=== PATIENT | male | born 1960 | race Caucasian/White ===

== ENCOUNTER 2016-06-01 08:16 | Emergency (ER) | payer OTHER ==
[~2016-06-01 08:16] MED LIST: Sodium Chloride 0.9% 1,000 ML BAG ONE
[2016-06-01] MEDS ORDERED: Ondansetron HCl/PF 4 MG/2 ML Vial ONE (08:44)
[2016-06-01] MEDS ORDERED: Fentanyl 100 MCG/2 ML VIAL ONE ×2 (08:44→10:36)
[2016-06-01] MEDS ORDERED: Ketorolac Tromethamine 30 MG/ML VIAL ONE (08:44)
[2016-06-01 08:54] LABS: #Basophils 0.1 thou/uL (0.0-0.2); #Eosinphils 0.1 thou/uL (0.0-0.7); #Lymphocytes 1.2 thou/uL (1.20-3.40); #Monocytes 0.7 thou/uL (0.11-0.59); #Neutrophils 10.7 thou/uL (1.40-6.50); %Basophils 0.7 % (0.0-1.0); %Eosinophils 0.9 % (0.0-10.0); %Lymphocytes 9.2 % (21.0-51.0); %Monocytes 5.2 % (0.0-10.0); %Neutrophils 84.1 % (42.0-75.0); Mean Corpuscular HGB CONC 33.8 g/dL (32.0-36.0); Mean Corpuscular Volume 94.8 fl (80.0-94.0); Mean Platelet Volume 8.4 fL (7.4-10.4); Platelet Count 285 thou/uL (130-400); RBC Distribution Width 11.5 % (11.5-14.5); Red Blood Cell (RBC) Count 4.69 mill/uL (4.70-6.10); White Blood Cell (WBC) Count 12.7 thou/uL (4.8-10.8)
[2016-06-01 09:09] LABS: ALT (SGPT) 30 U/L (0-55); AST (SGOT) 22 U/L (5-34); Albumin 4.2 g/dL (3.5-5.0); Alkaline Phosphatase 94 U/L (40-150); Anion Gap 18 mmol/L (10-20); BUN (Urea Nitrogen) 20 mg/dL (8.4-25.7); Bilirubin, Total 0.9 mg/dL (0.2-1.2); Calc. Creatinine Clearance 0 mL/min (70-130); Calcium 9.7 mg/dL (7.8-10.44); Carbon Dioxide 20 mmol/L (22-29); Chloride 105 mmol/L (98-107); Estimated GFR-MDRD 63; Globulin 3.1 g/dL (2.4-3.5); Glucose 133 mg/dL (70-105); Potassium 4.4 mmol/L (3.5-5.1); Protein, Total 7.3 g/dL (6.0-8.3); Sodium 139 mmol/L (136-145)
--- NOTE | 2016-06-01 09:58 | CT ---
CT ABDOMEN AND PELVIS WITHOUT CONTRAST: Technique: Multiple axial tomograms were obtained through the abdomen and pelvis without IV enhance ment. Oral contrast was not given. History: Left abdominal pain and left flank pain. FINDINGS: Lung bases are clear. The liver, spleen, and pancreas appear unremarkable for an unenhanced study. Adrenal glands appear normal. There is mild left hydronephrosis. There is ====== of the left ureter with inflammatory stranding s urrounding the left ureter and there is obstructing calculus in the distal left ureter measuring in the 4 mm range. The bladder is minimally distended and appears abnormally dense. This may represen t blood within the bladder. This should be evaluated by urology. There is a tiny hyperdense lesion in the left renal cortex measuring 0.7 cm which should be further evaluated with elective pre and post contrast CT. There are numerous surgical clips in the mesentery, the mid abdomen to the right of midline suggesti ng prior bowel resection. Small bowel loops show nonspecific distention. There is stool in the rig ht colon. The transverse colon and left colon is decompressed and cannot be adequately evaluated. Aorta is normal caliber. Nonspecific mesenteric and paraaortic lymph nodes. IMPRESSION: 1. 4 mm calculus in the distal left ureter producing moderate obstructive change. 2. Abnormally dense mildly distended bladder. This may be due to blood within the bladder although recommend cystoscopy to further evaluate. 3. Small hyperdense lesion in the left renal cortex measuring 0.7 cm should be further evaluated. 4. Evidence of prior small bowel resection with nonspecific distention of small bowel loops. POS: [facility]
[2016-06-01 11:15] LABS: Bilirubin Negative (Negative); Blood, Urine Large (Negative); Glucose, Urine (Dipstick) Negative (Negative); Leukocyte Negative (Negative); Nitrite Negative (Negative); Protein, Urine (Dipstick) 30 mg/dL (Neg-Trace); Urobilinogen 0.2 mg/dL (0.2-1.0); pH, Urine 5.5 (5.0-9.0)
[2016-06-01 11:16] LABS: Specific Gravity, Urine 1.026 (1.002-1.036)
[2016-06-01 11:18] LABS: Clarity Hazy (Clear); RBC/HPF GREATER THAN 50-TNTC HPF (0-3)
[2016-06-01 11:19] LABS: Bacteria/HPF Rare-Few HPF (None Seen)
--- NOTE | 2016-06-01 12:14 | ERRECORD ---
[facility] EMERGENCY RECORD HPI FLANK PAIN (10:02 BPIC) CHIEF COMPLAINT: Patient presents for evaluation of flank pain, on the left. HISTORIAN: History provided by patient, Flank pain that began within the past few hours. sharp pain. LOCATION MALE: Symptoms are localized, Radiation, back to front. QUALITY: Pain is sharp in nature. SEVERITY: Maximum severity of symptoms moderate, Currently symptoms are moderate. TIME COURSE: Sudden onset of symptoms, Symptoms are improving, are intermittent. ASSOCIATED WITH MALE: Associated with nausea. EXACERBATED BY: Patient's condition exacerbated by nothing. RELIEVED BY: Patient's condition relieved by nothing. ROS (10:02 BPIC) CONSTITUTIONAL: Negative constitutional review of systems, Historian denies chills, denies fever. EYES: Negative eye review of systems. ENT: Negative ears, nose, throat review of systems. CARDIOVASCULAR: Negative cardiovascular review of systems, Historian denies chest pain, denies palpitations. RESPIRATORY: Negative respiratory review of systems, Historian denies cough, denies shortness of breath. GI: Historian denies abdominal pain, denies constipation, denies diarrhea, reports nausea. MUSCULOSKELETAL: Negative musculoskeletal review of systems. SKIN: Negative skin review of systems. NEUROLOGIC: Negative neurologic review of systems. ENDOCRINE: Negative endocrine review of systems. HEMO/LYMPHATIC: Normal hematologic/lymphatic system review. PSYCHIATRIC: Negative psychiatric review of systems. NOTES: All other ROS is negative except as listed in HPI. PAST MEDICAL HISTORY MEDICAL HISTORY: Flu vaccine not up to date, Tetanus immunization up to date, Date of immunization: < 10YEARS, Past medical history includes gastrointestinal disease, inflammatory bowel disease: Crohn's. (09:03 SCHI) MALE SURGICAL HISTORY: FOUR BOWEL RESECTIONS 1992, 1991, 1985, 1977,, Surgical history of hernia repair, Date of surgery 1992. (09:03 SCHI) PSYCHIATRIC HISTORY: No previous psychiatric history, no previous inpatient psychiatric admissions, no previous emergency department psychiatric evaluations. (09:03 SCHI) NOTES: I have reviewed and agree with the PMH/PSxH/FamHx/SocHx obtained by the nurse. (10:02 BPIC) KNOWN ALLERGIES codeine sulfate: - UNUSUAL DREAMS &a-1R&a+25V*p+0X*q4773H*c202B*c15G*c2P*p-0X&a-25V&a+1R Name: Jeff Ayala : 1960 M55 MedRec: [id number] AcctNum: [id number] Prepared: MonJun 01, 2016 13:40 by Interface Page 1 of 4 pMD [facility] EMERGENCY RECORD morphine (bulk): - UNUSUAL DREAMS CURRENT MEDICATIONS No recorded medications VITAL SIGNS VITAL SIGNS: BP: 142/84, Pulse: 89, Resp: 22, Temp: 97 (Tympanic), Pain: 8 (Constant), O2 sat: 96 on Room Air, Time: 06/01/2016 08:32. (08:32 SCHI) BP: 140/76, Pulse: 72, Resp: 20, Pain: 5, O2 sat: 99 on Room Air, Time: 06/01/2016 10:02. (10:02 SCHI) Pain: 2, Time: 06/01/2016 09:30. (09:30 SCHI) Pain: 2, Time: 06/01/2016 09:30. (09:30 SCHI) BP: 136/86, Pulse: 71, Resp: 18, Temp: 98.1 (Tympanic), Pain: 2, O2 sat: 99 on Room Air, Time: 06/01/2016 11:40. (11:40 SCHI) PHYSICAL EXAM (10:02 BPIC) CONSTITUTIONAL: Vital signs reviewed, Patient appears non toxic, Patient alert and oriented to person, place and time, Pt cannot find a position of comfort. HEAD: Head exam included findings of head atraumatic, normocephalic. EYES: Eye exam included findings of eyelids normal to inspection, Pupils equally round and reactive to light, Extraocular muscles intact. ENT: ENT exam normal, Nose exam normal, no nasal deformity, no bleeding from nares, Pharynx exam normal, Mouth exam normal, mucous membranes moist. NECK: Neck exam included findings of normal range of motion, Trachea midline. RESPIRATORY CHEST: Respiratory and chest exam normal, Breath sounds clear, No wheezing, No rales, Chest exam included findings of chest movement symmetrical, Chest expansion equal. CARDIOVASCULAR: Cardiovascular assessment normal, Cardiovascular exam included findings of heart rate regular rate and rhythm, Heart sounds normal. ABDOMEN FEMALE: Abdominal exam included findings of abdomen nontender, Bowel sounds normal, no mass, no pulsatile masses, no peritoneal signs. BACK: Back exam included findings of normal inspection, range of motion normal, no costovertebral angle tenderness. UPPER EXTREMITY: Upper extremity exam included findings of inspection normal, Range of motion normal. LOWER EXTREMITY: Lower extremity exam included findings of inspection normal, Range of motion normal. NEURO: Neuro exam findings include patient oriented to person, place and time, Speech normal, no focal motor deficits, no focal sensory deficits. SKIN: Skin exam included findings of skin warm, dry, and normal in color. &a-1R&a+25V*p+0X*[id number]*c202B*c15G*c2P*p-0X&a-25V&a+1R Name: Jeff Ayala : 1960 M55 MedRec: [id number] AcctNum: [id number] Prepared: MonJun 01, 2016 13:40 by Interface Page 2 of 4 pMD [facility] EMERGENCY RECORD LYMPHATIC: Lymphatic exam normal. PSYCHIATRIC: Psychiatric exam included findings of patient oriented to person place and time, Normal affect. RADIOLOGYINTERPRETATION (11:35 BPIC) ABDOMEN: Abdomen/pelvis CT scan, without contrast shows, ureteral stone, hydronephrosis to the left kidney, Other findings: left kidney lesion. MEDICATION ADMINISTRATION SUMMARY Drug Name: fentaNYL (PF) injection, Dose Ordered: 50 mcg, Route: IV Push, Status: Given, Time: 10:42 06/01/2016, Drug Name: *sodium chloride 0.9 % intravenous, Dose Ordered: 1 L, Route: IV Fluid Infusion, Status: Given, Time: 10:42 06/01/2016, Drug Name: fentaNYL (PF) injection, Dose Ordered: 50 mcg, Route: IV Push, Status: Given, Time: 10:02 06/01/2016, Drug Name: fentaNYL (PF) injection, Dose Ordered: 50 mcg, Route: IV Push, Status: Given, Time: 08:56 06/01/2016, Drug Name: ketorolac injection, Dose Ordered: 30 mg, Route: IV Push, Status: Given, Time: 08:56 06/01/2016, Drug Name: Zofran intravenous, Dose Ordered: 8 mg, Route: IV Push, Status: Given, Time: 08:56 06/01/2016, Drug Name: *sodium chloride 0.9 % intravenous, Dose Ordered: 1 L, Route: IV Fluid Infusion, Status: Given, Time: 08:53 06/01/2016, *Additional information available in notes, Detailed record available in Medication Service section. DOCTOR NOTES (10:02 BPIC) TEXT: Pt c/o flank pain. DDX considered includes kidney stones, appendicitis, cholecystitis, pancreatitis, small bowel obstruction, diverticulitis, cystitis, volvulus, crohn's/UC, ischemic bowel, AAA/dissection, adhesions, testicular torsion. DATA REVIEWED: Lab data reviewed, Xray data reviewed, Discussed with family. PROBLEM LIST No recorded problems DIAGNOSIS (11:34 BPIC) FINAL: PRIMARY: Kidney stone, ADDITIONAL: hematuria. PRESCRIPTION (11:32 BPIC) Flomax: CAPSULE, EXT RELEASE 24 HR : 0.4 mg : ORAL : Quantity: 0.4 Unit: mg Route: ORAL Schedule: once a day Dispense: 30 Unit: tab(s) May substitute. Refills: No Refills . NOTES: No Refills. &a-1R&a+25V*p+0X*[id number]*c202B*c15G*c2P*p-0X&a-25V&a+1R Name: Jeff Ayala : 1960 5 MedRec: [id number] AcctNum: [id number] Prepared: MonJun 01, 2016 13:40 by Interface Page 3 of 4 pMD [facility] EMERGENCY RECORD DISPOSITION PATIENT: Disposition Type: Discharge, Disposition: *Discharge Home, Condition: Good. (11:34 BPIC) Patient left the department. (12:08 [facility] Gen[facility]: BPIC=MD Guru, Scar CALLES=GREGORIO Gross, Fernandainda &a-1R&a+25V*p+0X*m1918F*c202B*c15G*c2P*p-0X&a-25V&a+1R Name: Jeff Ayala : 1960 M55 MedRec: [id number] AcctNum: [id number] Prepared: MonJun 01, 2016 13:40 by Interface Page [address] [facility] [place]
--- NOTE | 2016-06-01 12:18 | PICIS ---
[facility] EMERGENCY RECORD TRIAGE (08:35 SCHI) TRIAGE NOTES: LEFT FLANK PAIN. (08:35 SCHI) PATIENT: NAME: Jeff Ayala, AGE: 55, GENDER: male, : Mon1960, TIME OF GREET: MonJun 01, 2016 08:17, PREFERRED LANGUAGE: Greenlandic, ETHNICITY: Not or , ECODE BILLING MAP: [facility], SSN: [id number], Zip Code: [address], KG WEIGHT: 88.00, PHONE: , , , PERSON ID: [id number], PCP: HOMERO. (08:35 SCHI) COMPLAINT: LOWER BACK PAIN,VOMITING. (08:35 SCHI) ADMISSION: URGENCY: 3 Urgent, ADMISSION SOURCE: Home, TRANSPORT: Walk-in, BED: ED -05. (08:35 SCHI) ASSESSMENT: Assessment: ALERT AND ORIENTED X 4, SKIN WARM AND DRY RESP EVEN AND UNLABORED,, Symptoms began 5AM. (09:03 SCHI) PAIN: Patient complains of pain described as, stabbing, on a scale 0-10 patient rates pain as 8, Location LEFT FLANK, LEFT GROIN, Pain is constant. (09:03 SCHI) TRIAGE SCREENING: Patient denies suicidal ideation, Patient denies presence of domestic violence. (09:03 SCHI) PROVIDERS: TRIAGE NURSE: Katina Gross RN. (08:35 SCHI) VITAL SIGNS: BP 142/84, Pulse 89, Resp 22, Temp 97, (Tympanic), Pain 8, (Constant), O2 Sat 96, on Room Air, Time 06/01/2016 08:32. (08:32 SCHI) PREVIOUS VISIT ALLERGIES: codeine sulfate, morphine (bulk). (08:35 SCHI) codeine sulfate, morphine (bulk). (09:03 SCHI) KNOWN ALLERGIES codeine sulfate: - UNUSUAL DREAMS morphine (bulk): - UNUSUAL DREAMS CURRENT MEDICATIONS No recorded medications VITAL SIGNS VITAL SIGNS: BP: 142/84, Pulse: 89, Resp: 22, Temp: 97 (Tympanic), Pain: 8 (Constant), O2 sat: 96 on Room Air, Time: 06/01/2016 08:32. (08:32 SCHI) BP: 140/76, Pulse: 72, Resp: 20, Pain: 5, O2 sat: 99 on Room Air, Time: 06/01/2016 10:02. (10:02 SCHI) Pain: 2, Time: 06/01/2016 09:30. (09:30 SCHI) Pain: 2, Time: 06/01/2016 09:30. (09:30 SCHI) BP: 136/86, Pulse: 71, Resp: 18, Temp: 98.1 (Tympanic), Pain: 2, O2 sat: 99 on Room Air, Time: 06/01/2016 11:40. (11:40 SCHI) NURSING ASSESSMENT: ABDOMEN (09:03 SCHI) CONSTITUTIONAL: Patient arrives ambulatory, Gait steady, History obtained from patient, Patient appears, in distress due to pain, Patient cooperative, Patient alert, Oriented to person, &a-1R&a+25V*p+0X*[id number]*c202B*c15G*c2P*p-0X&a-25V&a+1R Name: Jeff Ayala : 1960 M55 MedRec: [id number] AcctNum: [id number] Prepared: MonJun 01, 2016 13:46 by Interface Page 1 of 10 pMD [facility] EMERGENCY RECORD place and time, Skin abnormal, Skin temperature is cold, Skin, profusely diaphoretic, Skin, pale in color, Mucous membranes pink, Mucous membranes moist, Patient is well-groomed, Patient complains of LEFT FLANK PAIN SINCE 5 AM AND WORSE AT 7AM. PAIN: aching pain, miserable pain, stabbing pain, to the left flank, Onset of pain 5AM, constant, on a scale 0-10 patient rates pain as 8. ABDOMEN: Abdomen assessment findings include abdomen symmetrical, Abdomen soft, tender, to the left flank, Associated with nausea, Associated with vomiting, currently, Associated with diarrhea. GENITOURINARY MALE: Associated with urinary complaints described as, difficulty urinating. NOTES: Emotional support needed and given, Patient tolerated procedure well. SAFETY: Side rails up, Cart/Stretcher in lowest position, Family at bedside, Call light within reach, Hospital ID band on. NURSING PROCEDURE: DISCHARGE NOTE (11:45 SCHI) DISCHARGE: Patient discharged to home, ambulating without assistance, family driving, accompanied by other family member, Summary of Care printed/ provided, Patient requested and was provided an electronic copy of Discharge Instructions, Transition record given to patient, Discharge instructions given to patient, Simple or moderate discharge teaching performed, Prescriptions given and instructions on side effects given, Medication reconciliation form given, Above person(s) verbalized understanding of discharge instructions and follow-up care, Patient treated and evaluated by physician. BELONGINGS: Belongings and valuables with patient at time of discharge include:, Belongings remain with patient, Valuables remain with patient. SAFETY: Side rails up, Cart/Stretcher in lowest position, Family at bedside, Hospital ID band on. NURSING PROCEDURE: IV PATIENT IDENITIFIER: Patient actively involved in identification process, Patient's identity verified by patient stating name, Patient's identity verified by patient stating date, Patient's identity verified by hospital ID bracelet. (08:42 SCHI) IV SITE 1: IV therapy indicated for hydration, IV therapy indicated for medication administration, IV established, to the left antecubital, using a 20 gauge catheter, in one attempt, IV site prepped with chloraprep, Saline lock established, Flushed with normal saline (mls): 10, Labs drawn at time of placement, labeled in the presence of the patient and sent to lab. (08:42 SCHI) FOLLOW-UP SITE 1: IV discontinued, due to patient being discharged, catheter intact. (11:45 SCHI) &a-1R&a+25V*p+0X*c3785C*c202B*c15G*c2P*p-0X&a-25V&a+1R Name: Jeff Ayala : 1960 M55 MedRec: [id number] AcctNum: [id number] Prepared: MonJun 01, 2016 13:46 by Interface Page 2 of 10 pMD [facility] EMERGENCY RECORD NURSING PROCEDURE: TRANSPORT TO TESTS TRANSPORT TO TESTS: Transport indicated to facilitate diagnosis, Patient transported to CT scan. (08:59 SCHI) FOLLOW-UP: After procedure, patient returned to emergency department. (09:06 SCHI) NURSING PROCEDURE: URINE COLLECTION (10:55 SCHI) PATIENT IDENTIFIER: Patient's identity verified by patient stating name, Patient's identity verified by hospital ID bracelet. URINE COLLECTION MALE: Urine collected by void, output amount (mL) 30, urine rosa maria in color, Specimen labeled in the presence of the patient and sent to lab, Specimen obtained for culture labeled in the presence of the patient and sent to lab. ORDER DETAILS Order Name: CBC with Differential, Status: Active, Time: 08:43 06/01/2016, User: LACI, - Ordered for: MD Garvey Bryan, - Entered by: MD Garvey Bryan - [facility] Jun 01, 2016 08:43, - Quantity: 1, Order Name: Comprehensive Metabolic Panel, Status: Active, Time: 08:43 06/01/2016, User: IC, - Ordered for: MD Garvey Bryan, - Entered by: MD Garvey Bryan - [facility] Jun 01, 2016 08:43, - Quantity: 1, Order Name: CT Stone Protocol, Status: Active, Time: 08:43 06/01/2016, User: IC, - Ordered for: MD Garvey Bryan, - Entered by: MD Garvey Bryan [facility] Jun 01, 2016 08:43, - Quantity: 1, Order Name: Urinalysis w/ Rflx Microscopic, Status: Active, Time: 08:43 06/01/2016, User: LACI, - Ordered for: MD Garvey Bryan, - Entered by: MD Garvey Bryan - [facility] Jun 01, 2016 08:43, - Quantity: 1. MEDICATION ADMINISTRATION SUMMARY Drug Name: fentaNYL (PF) injection, Dose Ordered: 50 mcg, Route: IV Push, Status: Given, Time: 10:42 06/01/2016, Drug Name: *sodium chloride 0.9 % intravenous, Dose Ordered: 1 L, Route: IV Fluid Infusion, Status: Given, Time: 10:42 06/01/2016, Drug Name: fentaNYL (PF) injection, Dose Ordered: 50 mcg, Route: IV Push, Status: Given, Time: 10:02 06/01/2016, Drug Name: fentaNYL (PF) injection, Dose Ordered: 50 mcg, Route: IV Push, Status: Given, Time: 08:56 06/01/2016, Drug Name: ketorolac injection, Dose Ordered: 30 mg, Route: IV Push, Status: Given, Time: 08:56 06/01/2016, &a-1R&a+25V*p+0X*h0094X*c202B*c15G*c2P*p-0X&a-25V&a+1R Name: Jeff Ayala : 1960 M55 MedRec: [id number] AcctNum: [id number] Prepared: MonJun 01, 2016 13:46 by Interface Page 3 of 10 pMD [facility] EMERGENCY RECORD Drug Name: Zofran intravenous, Dose Ordered: 8 mg, Route: IV Push, Status: Given, Time: 08:56 06/01/2016, Drug Name: *sodium chloride 0.9 % intravenous, Dose Ordered: 1 L, Route: IV Fluid Infusion, Status: Given, Time: 08:53 06/01/2016, *Additional information available in notes, Detailed record available in Medication Service section. MEDICATION SERVICE fentaNYL (PF) injection: Order: fentaNYL (PF) injection (fentanyl citrate/preservative free) - Dose: 50 mcg : IV Push Ordered by: Scar Garvey MD Entered by: Scar Garvey MD MonJun 01, 2016 08:44 Documented as given by: Katina Gross RN MonJun 01, 2016 08:56 Patient, Medication, Dose, Route and Time verified prior to administration. IV SITE #1 IVP, subsequent different medication. fentaNYL (PF) injection: Response assessment performed, No signs or symptoms of allergic reaction noted, Decreased pain, _IV SITE #1:_, Pain: 2. (09:30 SCHI) fentaNYL (PF) injection: Order: fentaNYL (PF) injection (fentanyl citrate/preservative free) - Dose: 50 mcg : IV Push Ordered by: Scar Garvey MD Entered by: Katina Gross RN MonJun 01, 2016 10:06 Documented as given by: Katina Gross RN MonJun 01, 2016 10:02 Patient, Medication, Dose, Route and Time verified prior to administration. Verbal order read back and verified, IV SITE #1 IVP, repeat same medication, Catheter placement confirmed via flush prior to administration, IV site without signs or symptoms of infiltration during medication administration, No swelling during administration, No drainage during administration, IV flushed after administration, Correct patient, time, route, dose and medication confirmed prior to administration, Patient advised of actions and side-effects prior to administration, Allergies confirmed and medications reviewed prior to administration, Co-signed by: Scar Garvey MD MonJun 01, 2016 10:35. : Follow Up : Response assessment performed, No signs or symptoms of allergic reaction noted, Decreased pain, _IV SITE #1:_. (10:30 SCHI) fentaNYL (PF) injection: Order: fentaNYL (PF) injection (fentanyl citrate/preservative free) - Dose: 50 mcg : IV Push Ordered by: Scar Garvey MD Entered by: Scar Garvey MD MonJun 01, 2016 10:35 Documented as given by: Katina Gross RN MonJun 01, 2016 10:42 Patient, Medication, Dose, Route and Time verified prior to administration. IV SITE #1 IVP, repeat same medication, Catheter placement confirmed &a-1R&a+25V*p+0X*o7543A*c202B*c15G*c2P*p-0X&a-25V&a+1R Name: Jeff Ayala : 1960 M55 MedRec: [id number] AcctNum: [id number] Prepared: MonJun 01, 2016 13:46 by Interface Page 4 of 10 pMD [facility] EMERGENCY RECORD via flush prior to administration, IV site without signs or symptoms of infiltration during medication administration, No swelling during administration, No drainage during administration, IV flushed after administration, Correct patient, time, route, dose and medication confirmed prior to administration, Patient advised of actions and side-effects prior to administration, Allergies confirmed and medications reviewed prior to administration. ketorolac injection: Order: ketorolac injection (ketorolac tromethamine) - Dose: 30 mg : IV Push Ordered by: Scar Garvey MD Entered by: Scar Garvey MD MonJun 01, 2016 08:44 Documented as given by: Katina Gross RN MonJun 01, 2016 08:56 Patient, Medication, Dose, Route and Time verified prior to administration. IV SITE #1 IVP, subsequent different medication, Catheter placement confirmed via flush prior to administration, IV site without signs or symptoms of infiltration during medication administration, No swelling during administration, No drainage during administration, IV flushed after administration, Correct patient, time, route, dose and medication confirmed prior to administration, Patient advised of actions and side-effects prior to administration, Allergies confirmed and medications reviewed prior to administration. sodium chloride 0.9 % intravenous: Order: sodium chloride 0.9 % intravenous (0.9 % sodium chloride) - Dose: 1 L : IV Fluid Infusion Notes: (Bolus) Ordered by: Scar Garvey MD Entered by: Scar Garvey MD MonJun 01, 2016 08:44 Documented as given by: Katina Gross RN MonJun 01, 2016 08:53 Patient, Medication, Dose, Route and Time verified prior to administration. IV SITE #1 IV fluids established for hydration, IV SITE #1 into left antecubital, IV SITE #1 1st bag hung, amount 1 Liter hung, IV SITE #1 bolus of 1000 ml established, IV SITE #1 Rate of bolus, wide open, via primary tubing, Catheter placement confirmed via flush prior to administration, IV site without signs or symptoms of infiltration during medication administration, No swelling during administration, No drainage during administration, IV flushed after administration, Correct patient, time, route, dose and medication confirmed prior to administration, Patient advised of actions and side-effects prior to administration, Allergies confirmed and medications reviewed prior to administration. : Follow Up : Response assessment performed, No signs or symptoms of allergic reaction noted, Decreased pain, _IV SITE #1:_, IV fluid infusion discontinued, on MonJun 01, 2016 10:10, Total fluid hydration time IV site 1 1 hour, 20 minutes, ., Total amount infused: 1000, IV Line flushed after administration. (10:10 SCHI) sodium chloride 0.9 % intravenous: Order: sodium chloride 0.9 % intravenous (0.9 % sodium chloride) - Dose: 1 L : IV Fluid &a-1R&a+25V*p+0X*d8153Q*c202B*c15G*c2P*p-0X&a-25V&a+1R Name: Jeff Ayala : 1960 M55 MedRec: [id number] AcctNum: [id number] Prepared: MonJun 01, 2016 13:46 by Interface Page 5 of 10 pMD [facility] EMERGENCY RECORD Infusion Notes: (Bolus) Ordered by: Scar Garvey MD Entered by: Scar Garvey MD MonJun 01, 2016 10:42 Documented as given by: Katina Gross RN MonJun 01, 2016 10:42 Patient, Medication, Dose, Route and Time verified prior to administration. IV SITE #1 IV fluids established for hydration, IV SITE #1 2nd bag hung, amount 1 Liter hung, IV SITE #1 bolus of 1000 ml established, IV SITE #1 Rate of bolus, wide open, via primary tubing. : Follow Up : Response assessment performed, No signs or symptoms of allergic reaction noted, _IV SITE #1:_, IV fluid infusion discontinued, on MonJun 01, 2016 11:45, Total fluid hydration time IV site 1 1 hour, 5 minutes, ., Total amount infused: 500, IV Discontinued with catheter intact. (11:45 SCHI) Zofran intravenous: Order: Zofran intravenous (ondansetron HCl) - Dose: 8 mg : IV Push Schedule: Now Ordered by: Scar Garvey MD Entered by: Scar Garvey MD MonJun 01, 2016 08:44 Documented as given by: Katina Gross RN MonJun 01, 2016 08:56 Patient, Medication, Dose, Route and Time verified prior to administration. IV SITE #1 IVP, initial medication, Catheter placement confirmed via flush prior to administration, IV site without signs or symptoms of infiltration during medication administration, No swelling during administration, No drainage during administration, IV flushed after administration, Correct patient, time, route, dose and medication confirmed prior to administration, Patient advised of actions and side-effects prior to administration, Allergies confirmed and medications reviewed prior to administration. HPI FLANK PAIN (10:02 BPIC) CHIEF COMPLAINT: Patient presents for evaluation of flank pain, on the left. HISTORIAN: History provided by patient, Flank pain that began within the past few hours. sharp pain. LOCATION MALE: Symptoms are localized, Radiation, back to front. QUALITY: Pain is sharp in nature. SEVERITY: Maximum severity of symptoms moderate, Currently symptoms are moderate. TIME COURSE: Sudden onset of symptoms, Symptoms are improving, are intermittent. ASSOCIATED WITH MALE: Associated with nausea. EXACERBATED BY: Patient's condition exacerbated by nothing. RELIEVED BY: Patient's condition relieved by nothing. ROS (10:02 BPIC) CONSTITUTIONAL: Negative constitutional review of systems, Historian denies chills, denies fever. EYES: Negative eye review of systems. &a-1R&a+25V*p+0X*o6857V*c202B*c15G*c2P*p-0X&a-25V&a+1R Name: Jeff Ayala : 1960 M55 MedRec: [id number] AcctNum: [id number] Prepared: MonJun 01, 2016 13:46 by Interface Page 6 of 10 pMD [facility] EMERGENCY RECORD ENT: Negative ears, nose, throat review of systems. CARDIOVASCULAR: Negative cardiovascular review of systems, Historian denies chest pain, denies palpitations. RESPIRATORY: Negative respiratory review of systems, Historian denies cough, denies shortness of breath. GI: Historian denies abdominal pain, denies constipation, denies diarrhea, reports nausea. MUSCULOSKELETAL: Negative musculoskeletal review of systems. SKIN: Negative skin review of systems. NEUROLOGIC: Negative neurologic review of systems. ENDOCRINE: Negative endocrine review of systems. HEMO/LYMPHATIC: Normal hematologic/lymphatic system review. PSYCHIATRIC: Negative psychiatric review of systems. NOTES: All other ROS is negative except as listed in HPI. PAST MEDICAL HISTORY MEDICAL HISTORY: Flu vaccine not up to date, Tetanus immunization up to date, Date of immunization: < 10YEARS, Past medical history includes gastrointestinal disease, inflammatory bowel disease: Crohn's. (09:03 SCHI) MALE SURGICAL HISTORY: FOUR BOWEL RESECTIONS 1992, 1991, 1985, 1977,, Surgical history of hernia repair, Date of surgery 1992. (09:03 SCHI) PSYCHIATRIC HISTORY: No previous psychiatric history, no previous inpatient psychiatric admissions, no previous emergency department psychiatric evaluations. (09:03 SCHI) NOTES: I have reviewed and agree with the PMH/PSxH/FamHx/SocHx obtained by the nurse. (10:02 BPIC) PHYSICAL EXAM (10:02 BPIC) CONSTITUTIONAL: Vital signs reviewed, Patient appears non toxic, Patient alert and oriented to person, place and time, Pt cannot find a position of comfort. HEAD: Head exam included findings of head atraumatic, normocephalic. EYES: Eye exam included findings of eyelids normal to inspection, Pupils equally round and reactive to light, Extraocular muscles intact. ENT: ENT exam normal, Nose exam normal, no nasal deformity, no bleeding from nares, Pharynx exam normal, Mouth exam normal, mucous membranes moist. NECK: Neck exam included findings of normal range of motion, Trachea midline. RESPIRATORY CHEST: Respiratory and chest exam normal, Breath sounds clear, No wheezing, No rales, Chest exam included findings of chest movement symmetrical, Chest expansion equal. CARDIOVASCULAR: Cardiovascular assessment normal, Cardiovascular exam included findings of heart rate regular rate and rhythm, Heart sounds normal. &a-1R&a+25V*p+0X*q9153Y*c202B*c15G*c2P*p-0X&a-25V&a+1R Name: Jeff Ayala : 1960 M55 MedRec: [id number] AcctNum: [id number] Prepared: MonJun 01, 2016 13:46 by Interface Page 7 of 10 pMD [facility] EMERGENCY RECORD ABDOMEN FEMALE: Abdominal exam included findings of abdomen nontender, Bowel sounds normal, no mass, no pulsatile masses, no peritoneal signs. BACK: Back exam included findings of normal inspection, range of motion normal, no costovertebral angle tenderness. UPPER EXTREMITY: Upper extremity exam included findings of inspection normal, Range of motion normal. LOWER EXTREMITY: Lower extremity exam included findings of inspection normal, Range of motion normal. NEURO: Neuro exam findings include patient oriented to person, place and time, Speech normal, no focal motor deficits, no focal sensory deficits. SKIN: Skin exam included findings of skin warm, dry, and normal in color. LYMPHATIC: Lymphatic exam normal. PSYCHIATRIC: Psychiatric exam included findings of patient oriented to person place and time, Normal affect. EVENTS TRANSFER: Triage to Emergency Main ED -05. (MonJun 01, 2016 08:35 SCHI) Removed from Emergency Main ED -05. (12:08 SCHI) RADIOLOGYINTERPRETATION (11:35 BPIC) ABDOMEN: Abdomen/pelvis CT scan, without contrast shows, ureteral stone, hydronephrosis to the left kidney, Other findings: left kidney lesion. DOCTOR NOTES (10:02 BPIC) TEXT: Pt c/o flank pain. DDX considered includes kidney stones, appendicitis, cholecystitis, pancreatitis, small bowel obstruction, diverticulitis, cystitis, volvulus, crohn's/UC, ischemic bowel, AAA/dissection, adhesions, testicular torsion. DATA REVIEWED: Lab data reviewed, Xray data reviewed, Discussed with family. PROBLEM LIST No recorded problems DIAGNOSIS (11:34 BPIC) FINAL: PRIMARY: Kidney stone, ADDITIONAL: hematuria. DISPOSITION PATIENT: Disposition Type: Discharge, Disposition: *Discharge Home, Condition: Good. (11:34 BPIC) Patient left the department. (12:08 SCHI) INSTRUCTION (11:33 BPIC) DISCHARGE: KIDNEY STONE W/ COLIC. &a-1R&a+25V*p+0X*o7703X*c202B*c15G*c2P*p-0X&a-25V&a+1R Name: Jeff Ayala : 1960 M55 MedRec: [id number] AcctNum: [id number] Prepared: MonJun 01, 2016 13:46 by Interface Page 8 of 10 pMD [facility] EMERGENCY RECORD FOLLOWUP: MD Celine, , Urology, [address] [place] [address], [place] [phone], . SPECIAL: Please follow up with your physician in the next 2-3 days. Return to the Emergency Room with any worsening of your symptoms or other emergent concerns. Thank you for choosing [facility] Emergency Department for your care today, and God Bless You!. PRESCRIPTION (11:32 BPIC) Flomax: CAPSULE, EXT RELEASE 24 HR : 0.4 mg : ORAL : Quantity: 0.4 Unit: mg Route: ORAL Schedule: once a day Dispense: 30 Unit: tab(s) May substitute. Refills: No Refills . NOTES: No Refills. IMAGING *DISCHARGE INSTRUCTIONS RECEIPT: Image captured from scanner. (11:52 SCHI) *SUPPLY CHARGE SHEET: Image captured from scanner. (11:52 SCHI) NARCOTIC RX: Image captured from scanner. (11:53 SCHI) ADMIN DIGITAL SIGNATURE: GREGORIO Gross, Katina. (12:07 SCHI) MD Guru, Scar. (13:38 BPIC) RESULTS LABORATORY: Comprehensive Metabolic Panel Collection DT: MonJun 01, 2016 08:51, Sodium 139 mmol/L, Range (136-145), Potassium 4.4 mmol/L, Range (3.5-5.1), Chloride 105 mmol/L, Range (98-107), *Carbon Dioxide 20 - L mmol/L, Range (22-29), Anion Gap 18 mmol/L, Range (10-20), BUN (Urea Nitrogen) 20 mg/dL, Range (8.4-25.7), Creatinine 1.20 mg/dL, Range (0.7-1.3), Estimated GFR-MDRD 63 , Reference Range for Estimated GFR: Greater than 90, mL/min/1.73 m2 NOTE: The MDRD equation has not been validated for use, with the elderly (over 70 years of age), women, patients with, serious comorbid condition or persons with extremes of body size, muscle, mass, or nutritional status. , *Glucose 133 - H mg/dL, Range (70-105), Calcium 9.7 mg/dL, Range (7.8-10.44), Bilirubin, Total 0.9 mg/dL, Range (0.2-1.2), Protein, Total 7.3 g/dL, Range (6.0-8.3), NOTE: Plasma values are generally 0.3 to 0.5 g/dL higher than serum values, due to the presence of fibrinogen. , Albumin 4.2 g/dL, Range (3.5-5.0), &a-1R&a+25V*p+0X*f3498N*c202B*c15G*c2P*p-0X&a-25V&a+1R Name: Jeff Ayala : 1960 M55 MedRec: [id number] AcctNum: [id number] Prepared: MonJun 01, 2016 13:46 by Interface Page 9 of 10 pMD [facility] EMERGENCY RECORD Globulin 3.1 g/dL, Range (2.4-3.5), Alb/Glob Ratio 1.4 g/dL, Range (1.2-2.2), Alkaline Phosphatase 94 U/L, Range (40-150), AST (SGOT) 22 U/L, Range (5-34), ALT (SGPT) 30 U/L, Range (0-55). (09:20 LWAL) CBC with Differential Collection DT: MonJun 01, 2016 08:51, *White Blood Cell (WBC) Count 12.7 - H thou/uL, Range (4.8-10.8), *Red Blood Cell (RBC) Count 4.69 - L mill/uL, Range (4.70-6.10), Hemoglobin 15.0 g/dL, Range (14.0-18.0), Hematocrit 44.5 %, Range (42.0-52.0), *Mean Corpuscular Volume 94.8 - H fl, Range (80.0-94.0), *Mean Corpuscular Hemoglobin 32.0 - H pg, Range (27.0-31.0), Mean Corpuscular HGB CONC 33.8 g/dL, Range (32.0-36.0), RBC Distribution Width 11.5 %, Range (11.5-14.5), Platelet Count 285 thou/uL, Range (130-400), Mean Platelet Volume 8.4 fL, Range (7.4-10.4), *%Neutrophils 84.1 - H %, Range (42.0-75.0), *%Lymphocytes 9.2 - L %, Range (21.0-51.0), %Monocytes 5.2 %, Range (0.0-10.0), %Eosinophils 0.9 %, Range (0.0-10.0), %Basophils 0.7 %, Range (0.0-1.0), *#Neutrophils 10.7 - H thou/uL, Range (1.40-6.50), #Lymphocytes 1.2 thou/uL, Range (1.20-3.40), *#Monocytes 0.7 - H thou/uL, Range (0.11-0.59), #Eosinphils 0.1 thou/uL, Range (0.0-0.7), #Basophils 0.1 thou/uL, Range (0.0-0.2). (09:20 LWAL) Urine Microscopic Collection DT: MonJun 01, 2016 11:15, *RBC/HPF GREATER THAN 50-TNTC HPF, * - H , Range (0-3), *WBC/HPF 4-6 - H HPF, Range (0-3), *Squamous Epithelial 4-6 - H HPF, Range (0-3), Bacteria/HPF Rare-Few HPF, Range (None Seen). (11:23 BPIC) Urinalysis w/ Rflx Microscopic Collection DT: MonJun 01, 2016 11:15, Color Yellow , Range (Yellow), Clarity Hazy , Range (Clear), CORRECTED REPORT ., Specific [place], Urine 1.026 , Range (1.002-1.036), pH, Urine 5.5 , Range (5.0-9.0), Leukocyte Negative , Range (Negative), Nitrite Negative , Range (Negative), *Protein, Urine (Dipstick) 30 - H mg/dL, Range (Neg-Trace), Glucose, Urine (Dipstick) Negative mg/dL, Range (Negative), Ketone, Urine Negative mg/dL, Range (Negative), Urobilinogen 0.2 mg/dL, Range (0.2-1.0), Bilirubin Negative , Range (Negative), *Blood, Urine Large - H , Range (Negative). (11:23 BPIC) [place]: BPIC=MD Guru, Scar STOVALL=GREGORIO Lopez, Concepcion CALLES=GREGORIO Gross, Shavona &a-1R&a+25V*p+0X*[id number]*c202B*c15G*c2P*p-0X&a-25V&a+1R Name: Jeff Ayala : 1960 M55 MedRec: [id number] AcctNum: [id number] Prepared: MonJun 01, 2016 13:46 by Interface Page 10 of 10 pMD MTDD
== END 2016-06-01 11:45 | disposition home or self-care (01) ==
LOC: MADERS 08:16
DX: N20.0 Calculus of kidney (principal); R31.9 Hematuria, unspecified
CPT/HCPCS: 36415; 74176; 80053; 81003; 81015; 85025; 96361; 96374; 96375; 96376; J1885; J2405; J3010; J7050

== ENCOUNTER 2020-01-26 12:44 | Emergency (ER) | payer BC, OTHER ==
--- NOTE | 2020-01-26 14:48 | RAD ---
LEFT SHOULDER THREE VIEWS: History: Injury FINDINGS: No fracture or dislocation. AC joint normally aligned. IMPRESSION: No acute findings. POS: AGW
--- NOTE | 2020-01-26 14:51 | RAD ---
LEFT ELBOW FOUR VIEWS: Indication: Injury FINDINGS: No evidence of fracture. No evidence of joint effusion. IMPRESSION: No acute abnormality. POS: AGW
== END 2020-01-26 14:17 | disposition home or self-care (01) ==
LOC: MADERS 12:44
DX: S46.012A Strain of muscle(s) and tendon(s) of the rotator cuff of left shoulder, initial encounter (principal); S40.022A Contusion of left upper arm, initial encounter; K50.90 Crohn's disease, unspecified, without complications; W11.XXXA Fall on and from ladder, initial encounter